=== PATIENT | female | born 1935 | race African-American/Black ===

== ENCOUNTER 2018-12-18 20:15 | Inpatient (IN) ==
[2018-12-18] MEDS ORDERED: M.V.I.-12 10 ML, FOLIC ACID 1 MG, MAGNESIUM SULFATE 1 GM, THIAMINE 100 MG in NS 1,000 ML IV ONE (21:24)
--- NOTE | 2018-12-18 21:51 | Diag Imaging Result Doc PS360 ---
EXAM: CT HEAD W/O CONTRAST INDICATION: lt sided weakness TECHNIQUE: COMPARISON: None. FINDINGS: There is patchy low attenuation in the periventricular and subcortical white matter suggesting moderate microangiopathy. There is ventriculomegaly that is likely due to age-related brain atrophy. There is no definite acute infarct given the limited sensitivity of CT versus MRI. There is no discrete intracranial mass, mass effect, or intracranial hemorrhage. The surrounding soft tissues and bony structures are essentially unremarkable. IMPRESSION: Chronic appearing changes as described. No definite acute intracranial pathology by CT. Electronically signed by Román Crowder 12/18/2018 9:49 PM
[2018-12-18 22:21] LABS: BASO# 0.03 X1000 (0.0-0.2); BASO% 0.4 % (0.0-0.8); EOS# 0.03 X1000 (0.0-0.7); EOS% 0.4 % (0.0-10.0); HEMATOCRIT 32.4 % (37.0-47.0); HEMOGLOBIN 10.7 g/dL (12.0-16.0); LYMPH# 1.12 X1000 (1.2-3.4); LYMPH% 16.1 % (20.5-51.1); MCH 30.5 PG (27-31); MCV 92.3 FL (81-99); MONO# 0.85 X1000 (0.11-0.59); MONO% 12.2 % (1.7-9.3); MPV 8.6 FL (7.4-10.4); NEUT# 4.94 X1000 (1.4-6.5); NEUT% 70.9 % (42.2-75.2); PLT 242 X1000 (130-400); RBC 3.51 XMIL (4.2-5.4); RDW 14.5 % (11.5-14.5); WBC 6.97 X1000 (4.8-10.8)
[2018-12-18 22:28] LABS: INR 1.01; PROTIME 14.1 Seconds (11.0-16.0)
[2018-12-18 22:29] LABS: PTT 33.7 Seconds (22.3-41.8)
[2018-12-18 22:49] LABS: ALB/GLOB RATIO 1.3; ALBUMIN 3.8 g/dL (3.5-5.0); CALCIUM 8.9 mg/dL (8.8-10.2); CREATININE 1.6 mg/dL (0.5-0.9); POTASSIUM 4.1 mmol/L (3.5-5.1); TOTAL BILIRUBIN 0.47 mg/dL (0.20-1.00); TOTAL PROTEIN 6.8 g/dL (6.3-8.3)
--- NOTE | 2018-12-18 22:49 | EKG Report ---
Test Performed on : 12/18/2018 10:30:33 PM Test Reason : WEAKNESS Blood Pressure : / mmHG Vent. Rate : 098 BPM Atrial Rate : 098 BPM P-R Int : 124 ms QRS Dur : 082 ms QT Int : 342 ms P-R-T Axes : 067 048 052 degrees QTc Int : 436 ms Normal sinus rhythm. Possible Left atrial enlargement Nonspecific ST abnormality Abnormal ECG When compared with ECG of 15-JUN-2007 07:12, Vent. rate has increased BY 38 BPM Non-specific change in ST segment in Anterior leads Nonspecific T wave abnormality, worse in Inferior leads Unconfirmed Result
[2018-12-18 23:08] LABS: URINE SOURCE CATH
[2018-12-18 23:21] LABS: BILIRUBIN URINE NEGATIVE (NEGATIVE); BLOOD URINE MODERATE (NEGATIVE); COLOR YELLOW; GLUCOSE URINE NEGATIVE (NEGATIVE); KETONE URINE NEGATIVE (NEGATIVE); LEUKOCYTES URINE NEGATIVE (NEGATIVE); NITRITE URINE NEGATIVE (NEGATIVE); PROTEIN URINE 30 mg/dL (NEGATIVE); TURBIDITY URINE CLEAR (CLEAR); UROBILINOGEN URINE NORMAL (NORMAL)
[2018-12-18 23:22] LABS: UR EPITHELIAL CELLS <10 /HPF (<10); URINE BACTERIA NEGATIVE /HPF; URINE RBC <10 /HPF (<10); URINE WBC <10 /HPF (<10)
[2018-12-18] MEDS ORDERED: ASPIRIN PO ONE (23:54)
--- NOTE | 2018-12-18 23:54 | PROVIDER DOCUMENTATION ---
This chart was entered by Rosa Barroso Scribe, acting as scribe for Gunnar Bernard MD. HPI-General Adult - General Chief Complaint: General Adult Stated Complaint: unable to urinate Time Seen by Provider: 12/18/18 21:11 Source: patient Allergies/Adverse Reactions: Patient Allergies Allergy/AdvReac Type Severity Reaction Status Date / Time No Known Allergies Allergy Verified 12/18/18 21:38 Home Medications: Home Medication List Medication Instructions Recorded Confirmed Last Taken Type Cholecalciferol (Vitamin D3) 2,000 unit PO DAILY 12/18/18 12/18/18 Unknown History [Vitamin D3] Donepezil HCl 10 mg PO QHS 12/18/18 12/18/18 Unknown History LISINOpril [Prinivil] 20 mg PO DAILY 12/18/18 12/18/18 Unknown History Lisinopril/Hydrochlorothiazide 1 ea PO DAILY 12/18/18 12/18/18 Unknown History [Lisinopril-Hctz 20-25 mg Tab] Memantine HCl 5 mg PO BID 12/18/18 12/18/18 Unknown History Mirtazapine 7.5 mg PO QHS 12/18/18 12/18/18 Unknown History Oxcarbazepine 300 mg PO BID 12/18/18 12/18/18 Unknown History Quetiapine Fumarate 300 mg PO TID 12/18/18 12/18/18 Unknown History Trazodone HCl 50 mg PO QHS 12/18/18 12/18/18 Unknown History - History of Present Illness -Gen Adult Nature of Presenting Problems: pt is a 83 yr old female presenting via EMS with complaint of decreased appetite, decreased urine out put and fatigue. per family pt was admitted x 8/9 days at [facility] in [place], pt was discharged home 2 days ago. family with pt reports she has not eaten since returning home, pt reports she does not feel like eating. family also reports decreased urination, was told her kidney function was low and she has appointment with nephrology on 12/23/18 to follow up on this. family noted left arm weakness apporx 1300 this date. pt denies any pain, only admits left arm weakness and no appetite. Pt also is unable to move her lt arm that was noticed by her family at about 1pm today. Location of Pain/Injury: reports: none Pain Radiation: reports: no radiation Quality of Pain: reports: none Onset/Duration: reports: 2 days ago Timing: reports: still present, changing over time Context/Activities at Onset: reports: rest Modifying Factors: improves with: nothing Associated Symptoms: reports: fatigue, fever/chills, genitourinary problems, loss of appetite. denies: chest pain, diarrhea, nausea, shortness of breath, vomiting Similar Symptoms Previously?: No Recently seen or treated by another doctor?: Yes Review of Systems - Adult - REVIEW OF SYSTEMS - ADULT ROS:: ROS per family Constitutional: reports: fatique Eyes: reports: no symptoms reported Ears, Nose, Mouth & Throat: reports: no symptoms reported Cardiovascular: denies: chest pain, palpitations, syncope Respiratory: denies: cough, shortness of breath, wheezing Gastrointestinal: reports: poor appetite. denies: diarrhea, vomiting Genitourinary: reports: other (decreased urine output) Musculoskeletal: reports: no symptoms reported Integumentary: reports: no symptoms reported Neurological: denies: headache/migraines Psychiatric: reports: no symptoms reported Endocrine: reports: no symptoms reported Hematologic/Lymphatic: reports: no symptoms reported Allergic/Immunologic: reports: no symptoms reported All Other Systems: Reviewed and Negative Past History - Adult - PAST MEDICAL HISTORY-ADULT Review of Records: reports: Nursing Assessment Review, Medications Reviewed, Social history reviewed & non-contributory. Major Childhood Illnesses: reports: denies history Cardiovascular: reports: denies history Respiratory: reports: denies history Gastrointestinal: reports: denies history Obstetrical/Gynecological: reports: denies history Genitourinary: reports: denies history Musculoskeletal: reports: denies history Neurological: reports: dementia Endocrine/Immune: reports: denies history Other Conditions: reports: denies history - IMMUNIZATION STATUS Childhood Immunizations: See Nurse Assessment Flu Vaccine: See Nurse Assessment - FAMILY HISTORY Family History: reviewed, not pertinent - SOCIAL HISTORY Living Situation: family Physical Exam-General - PHYSICAL EXAM-ADULT Initial Vital Signs Reviewed: Yes - CONSTITUTIONAL General Appearance: alert, no apparent distress - EYES Eyes: PERRL/EOMI - HEAD, EARS, NOSE, MOUTH & THROAT HENMT: normocephalic/atraumatic, moist mucous membranes - NECK Neck: non-tender, full range of motion, supple, normal inspection - RESPIRATORY Respiratory: chest non-tender, lungs clear, normal breath sounds, no respiratory distress, no accessory muscle use - CARDIOVASCULAR Cardiovascular: normal peripheral pulses, regular rate, rhythm, no edema - GASTROINTESTINAL (ABDOMEN) Abdominal Exam: normal bowel sounds, soft, tenderness (suprapubic tenderness) - LYMPHATIC Lymphatic: no adenopathy - MUSCULOSKELETAL Back Exam: normal inspection, no CVA tenderness, no vertebral tenderness Extremity: non-tender, normal inspection, normal capillary refill, tenderness (lt wrist tenderness). negative: pulse deficit - SKIN Integumentary: normal color, normal turgor, warm/dry - NEUROLOGIC Neurologic: motor weakness (left arm weakness. Pt is unable to move Lt arm. She denies any falls or injuries.) - PSYCHIATRIC Psych/Mental Status: normal mood/affect Progress - PLAN OF CARE/RESULTS Progress/Plan/Lab Results: Vital Signs - 8 hr 12/18/18 20:52 Temperature 99.7 F H Pulse Rate 93 H Respiratory Rate 18 Blood Pressure 197/74 O2 Sat by Pulse Oximetry 95 Result Diagrams: 12/18/18 22:10 12/18/18 22:10 - EKG 1 Time of EKG reading by physician:: 22:30 EKG Read and Signed by:: Gunnar Bernard EKG Interpretation (*Must complete 3 of following elements*): Abnormal (non spe cific st abnormality, poss LAE) Rate: 98 Rhythm: nsr [place]: normal QRS: normal SC Interval: normal ST Wave: non-specific ST changes - CT/MRI 1 CT Study: Head Impression: Normal (Signed EXAM: CT HEAD W/O CONTRAST INDICATION: lt sided weakness TECHNIQUE: COMPARISON: None. FINDINGS: There is patchy low attenuation in the periventricular and subcortical white matter suggesting moderate microangiopathy. There is ventriculomegaly that is likely due to age- related brain atrophy. There is no definite acute infarct given the limited sensitivity of CT versus MRI. There is no discrete intracranial mass, mass effect, or intracranial hemorrhage. The surrounding soft tissues and bony structures are essentially unremarkable. IMPRESSION: Chronic appearing c hanges as described. No definite acute intracranial pathology by CT. Electronically signed by Román Crowder 12/18/2018 9:49 PM 12/18/182148 Interpreting Physician: Román Crowder MD Dictated Date/Time: 12/18/182146 cc: Gunnar Bernard MD; Nicolás Bello MD), See EMR Report Comparison with other Films: no prior study - CONSULTS/PCP/HOSPITALIST Notification #1 *Consult/PCP/Hospitalist*: Dr Dee Time Discussed: 23:50 Consult Disposition: Will see in ED, Admit Departure - Departure Date of Disposition Decision: 12/18/18 Time of Disposition Decision: 23:50 DIAGNOSIS: Dehydration, Renal insufficiency, LUE weakness Disposition: ADMITTED INPATIENT 09 Certified Medical Emergency: Emergent Condition: Fair Referrals and Follow-Ups: Nicolás Bello MD [ACTIVE STAFF PHYSICIAN] - - Critical Care Note This patient required my direct & personal management of CC.: No Attestation - Physician/ ROXANE Attestation Patient care was provided by Advanced Practice Provider:: No The physician spent face to face time with patient:: Yes Advanced Practice Provider documentation review:: Supervising physician onsite and consulted in the evaluation and care of this patient. The physician did have a face to face encounter with the patient. This chart was documented by the indicated scribe, (Rosa Barroso Scribe) and accurately reflects the services I performed and decisions made by me, Gunnar Bernard MD, as attested by the provider's signature.
[2018-12-19] MEDS ORDERED: VOLTAREN 1% GEL TOP ONE (01:27)
[2018-12-19] MEDS: NS 1,000 ML IV SCH ×2 (01:57→18:45)
--- NOTE | 2018-12-19 08:47 | Diag Imaging Result Doc PS360 ---
EXAM: WRIST COMPLETE LEFT INDICATION: wrist pain TECHNIQUE: 3 views COMPARISON: None. FINDINGS: There are small degenerative subcortical cysts involving several carpal bones and there is degenerative narrowing of the radiocarpal joint. There is no discrete fracture, dislocation, or significant intrinsic osseous lesion, otherwise. The visualized joint spaces are essentially unremarkable. There is suggestion of mild soft tissue edema around the wrist. IMPRESSION: Degenerative changes and suggestion of mild soft tissue edema. No definite acute osseous abnormality by plain radiograph. Electronically signed by Román Crowder 12/19/2018 8:45 AM
[2018-12-19] MEDS ORDERED: SEROQUEL PO SCH (09:00)
--- NOTE | 2018-12-19 10:08 | HISTORY AND PHYSICAL ---
PRIMARY CARE PHYSICIAN: Unknown. CHIEF COMPLAINT: Left upper extremity weakness. HISTORY OF PRESENTING ILLNESS: An 83-year-old female with a history of dementia and hypertension who presented to the emergency department with a 1-day history of having left upper extremity weakness. The patient is a poor historian. However, family member stated that she was having difficulty lifting upper left arm. She was evaluated in the emergency department and due to her presenting symptoms and suspected stroke it was thought that she would need admission for further management. At the time of my examination, patient denied any headache, fever, chills, chest pain, shortness of breath, hemoptysis or weight changes, but complained of left wrist pain. PAST MEDICAL HISTORY: Includes dementia, hypertension. PAST SURGICAL HISTORY: None. ALLERGIES: No known drug allergies. CURRENT MEDICATIONS: Include donepezil 10 mg p.o. at bedtime, lisinopril 20 mg p.o. daily, memantine 5 mg p.o. b.i.d., oxcarbazepine 300 mg p.o. b.i.d., quetiapine 300 mg p.o. t.i.d., trazodone 50 mg p.o. at bedtime. SOCIAL HISTORY: No history of smoking, alcohol or illicit drug use. She lives with her nephew. FAMILY HISTORY: No history of coronary artery disease. REVIEW OF SYSTEMS: Fourteen point review of systems as listed in HPI. Other systems negative. PHYSICAL EXAMINATION: GENERAL: Cooperative, friendly female. She is resting comfortably now. VITAL SIGNS: Temperature 99.7 degrees, pulse 93, respiration 18, blood pressure 197/74. HEENT: Atraumatic, normocephalic. Extraocular movements intact. PERRLA. NECK: No masses. CHEST: Clear to auscultation. CARDIOVASCULAR: Regular rate and rhythm. ABDOMEN: Soft, positive bowel sounds. EXTREMITIES: Left wrist tenderness. NEUROLOGIC: She is awake, alert, oriented x2. Strength 1/5 on left upper extremity, 5/5 all other extremities. Speech is intact. GENITOURINARY: No bladder distention. SKIN: Warm. LABORATORIES AND STUDIES: WBC 6.97, hemoglobin 10.7, hematocrit 32.4, platelets 242,000. Sodium 143, potassium 4.1, chloride 102, CO2 is 27, BUN is 34, creatinine is 1.6, glucose 121. UA, negative for leukocytes. Head CT, chronic-appearing changes, no acute intracranial pathology. ASSESSMENT: An 83-year-old female with a history of dementia and hypertension who was brought to the emergency department due to 1-day history of having difficulty raising her left upper extremity. She was seen in the ER and due to suspicion of CVA she will require admission for further management. 1. Left upper extremity weakness. We will need to rule out cerebrovascular accident. 2. Left wrist tenderness. 3. Renal insufficiency. 4. Hypertension. 5. Dementia. PLAN: 1. We will admit patient to medical floor with telemetry. 2. Continue with stroke workup. 3. We will schedule an MRI of the brain. 4. We will consult Neurology. 5. We will check an echocardiogram. 6. We will give appropriate analgesics for pain control. 7. Continue with gentle hydration. 8. We will monitor blood pressure closely. 9. We will restart home medications. 10. We will put patient on DVT prophylaxis with SCDs. 11. Continue to follow, and reassess and make further recommendation based on patient's clinical course. cc: Lit Dee MD
[2018-12-19] MEDS: TRILEPTAL PO SCH ×2 (10:18→21:47)
[2018-12-19] MEDS: NAMENDA PO SCH ×2 (10:21→21:48)
[2018-12-19] MEDS: TYLENOL PO PRN (10:22)
[2018-12-19] MEDS: PRINIVIL PO SCH ×2 (10:22→14:39)
[2018-12-19 15:54] LABS: URINE SOURCE CATH
[2018-12-19 16:06] LABS: BILIRUBIN URINE NEGATIVE (NEGATIVE); BLOOD URINE SMALL (NEGATIVE); COLOR YELLOW; GLUCOSE URINE NEGATIVE (NEGATIVE); KETONE URINE NEGATIVE (NEGATIVE); LEUKOCYTES URINE NEGATIVE (NEGATIVE); NITRITE URINE NEGATIVE (NEGATIVE); PROTEIN URINE TRACE mg/dL (NEGATIVE); SP GRAVITY URINE 1.018; TURBIDITY URINE CLEAR (CLEAR); UROBILINOGEN URINE NORMAL (NORMAL)
[2018-12-19 16:30] LABS: UR EPITHELIAL CELLS <10 /HPF (<10); URINE BACTERIA NEGATIVE /HPF; URINE RBC <10 /HPF (<10); URINE WBC <10 /HPF (<10)
[2018-12-19 16:39] LABS: URINE CASTS GRANULAR PRESENT; URINE CRYSTALS NONE SEEN; URINE YEAST NONE SEEN
[2018-12-19] MEDS: ARICEPT PO SCH (21:47)
[2018-12-20 07:44] LABS: BASO# 0.02 X1000 (0.0-0.2); BASO% 0.2 % (0.0-0.8); EOS# 0.02 X1000 (0.0-0.7); EOS% 0.2 % (0.0-10.0); HEMATOCRIT 30.4 % (37.0-47.0); HEMOGLOBIN 9.8 g/dL (12.0-16.0); IMM GRAN# 0.02 X1000 (0.0-0.04); IMM GRAN% 0.2 % (0.0-0.5); LYMPH% 12.4 % (20.5-51.1); MCH 29.6 PG (27-31); MCHC 32.2 g/dL (33-37); MCV 91.8 FL (81-99); MONO# 0.88 X1000 (0.11-0.59); PLT 249 X1000 (130-400); RBC 3.31 XMIL (4.2-5.4); RDW 14.4 % (11.5-14.5); WBC 8.84 X1000 (4.8-10.8)
[2018-12-20 08:02] LABS: AGAP 16; BUN 21 mg/dL (8-22); CALCIUM 7.9 mg/dL (8.8-10.2); CHLORIDE 103 mmol/L (98-107); COSMO 282; ESTIMATED GFR > 60; GLUCOSE 98 mg/dL (70-104); POTASSIUM 4.2 mmol/L (3.5-5.1); SODIUM 140 mmol/L (136-145); TCO2 21 mmol/L (25-35)
[2018-12-20] MEDS: TRILEPTAL PO SCH ×2 (09:08→21:09)
[2018-12-20] MEDS: PRINIVIL PO SCH (09:08)
[2018-12-20] MEDS: NAMENDA PO SCH (09:09)
--- NOTE | 2018-12-20 09:20 | Diag Imaging Result Doc PS360 ---
MRI BRAIN W/WO CONTRAST - 12/19/2018 INDICATION: CVA COMPARISON: Head CT 12/18/2018 FINDINGS: There is no area of restricted diffusion. No intracranial mass or hemorrhage. There is no abnormal contrast enhancement. There is overall moderate atrophy, with significant diffuse ventriculomegaly. There is some moderate scattered periventricular white matter hyperintensity compatible with chronic microvascular disease. IMPRESSION: No acute process. Atrophy and chronic microvascular disease. 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 Electronically signed by Timothy Esteban 12/20/2018 9:18 AM
[2018-12-20] MEDS ORDERED: NORVASC PO ONE (14:01)
[2018-12-20] MEDS: NS 1,000 ML IV SCH (15:00)
--- NOTE | 2018-12-20 15:13 | PROGRESS NOTE ---
DATE: 12/20/2018 SUBJECTIVE: This patient seems to be doing better today. She is more awake, she is following commands, and she is answering some of my questions for me. She is not oriented to time, though. She is able to move all 4 extremities. It looks like she has a little bit of left upper extremity weakness. MRI did not show any acute process. We will continue with same management. We will continue physical therapy and occupational therapy. OBJECTIVE: Vital Signs: Temperature 98 degrees, pulse 91, respiratory rate 20, blood pressure 186/74, oxygen saturation 98 on room air. HEENT: Head normocephalic, no trauma. PERRLA. Neck: Supple. No JVD. No masses. Central trachea. Chest: Clear to auscultation. No wheezing. No rales. Abdomen: Soft, nontender, nondistended. No hepatosplenomegaly. Extremities: No edema, no clubbing, no cyanosis. Left wrist tenderness. Neurological: She is awake. She is oriented x2. She has some weakness around 3/5 left upper extremity and 5/5 all other extremities. Speech is intact. LABORATORY: WBC 8.8, hemoglobin 9.8, hematocrit 30.4, platelets 249,000. Sodium 140, potassium 4.2, chloride 103, bicarbonate 21, BUN 21, creatinine 1, glucose 98, calcium 7.9. ASSESSMENT AND PLAN: 1. Encephalopathy, resolved. Yesterday this patient basically was really lethargic. I believe was because of the medications. It looks like she has been on quetiapine, and the dose has been increased. I stopped it today and also I held the trazodone and mirtazapine, which I will restart today. I will start with quetiapine, but at a lower dose today, as well. Instead of 100 t.i.d., I will start with 25 t.i.d., and I will discuss with the family about it today or tomorrow. 2. Left wrist tenderness, probably due to a trauma. She is not complaining of too much pain today. X-rays negative. 3. Acute kidney injury. This is getting much better. Actually the creatinine decreased from 1.6 to 1.0. I do not have any previous results to compare. 4. Hypertension. She has been placed back on her lisinopril. We held the hydrochlorothiazide because of her kidney dysfunction. I will add amlodipine to her medications times one at 2.5 mg to see how she does. 5. Dementia. She is alert. She is oriented x2. I will continue with her regular medications, but I will decrease the dose of the quetiapine. cc: Terry Bond MD
--- NOTE | 2018-12-20 15:21 | CONSULTATION ---
DATE OF CONSULTATION: 12/20/2018 LOCATION: Room 327. HISTORY OF PRESENT ILLNESS: Ms. Goode is 83 years old and there is reported to be baseline dementia. She presented with report of left arm weakness. Her history to me is considered not valid based on her baseline dementia. She told me that she thinks her left arm might be weak, but she is not certain and she is not certain when that might have become apparent. She does not remember any head, neck, arm injury. She does not remember prior diagnosis of stroke. I do not have first hand report available now regarding the duration of her dementia. The admission note indicates donepezil 10 mg daily and memantine 5 mg b.i.d., but I do not know how long she has had these on board. Other home medicines with [employer] activity include oxcarbazepine 300 mg b.i.d., mirtazapine 7.5 mg at bedtime, quetiapine 100 mg t.i.d., trazodone 50 mg at bedtime. I have not verified these medication doses to be correct. She could not provide reason for oxcarbazepine. WORKUP: Workup here includes initial noncontrast CT of the head showing atrophy and old changes, but nothing focal or acute. Brain MRI done with and without contrast this morning is reported to show nothing remarkable, nothing acute. Lab shows anemia. Chemistry profile shows initial mild azotemia, which has been corrected. She has been afebrile. Systolic blood pressures were initially 190s, once recorded 102, otherwise 140s-180s in recent hours. EXAMINATION: Ms. Goode is awake, alert, attentive. She answered questions appropriately. She did not identify this as a hospital. She initially told me she was in [place] and later [place]. She did not name the President. She guessed the day of the week incorrectly to be Thursday. She did not provide the name of the month. Speech is not significantly dysarthric. Language function is intact on brief bedside testing. I did not test her cognitive function further. Head and neck are unremarkable. There is no meningismus. She has full visual arevalo. Extraocular movements are good. Facial motility is little bit diminished bilaterally, but appears symmetric. Tongue is midline. She has good power in the right arm. On the left, I can overcome the deltoid at the shoulder, but this is inconsistent. She splints her left arm with apparent discomfort. The left hand appears a little bit swollen across the dorsum and there is warmth there. She did rapid alternating movements better with the right hand than the left. She did well on [id number] testing bilaterally. She reports good pinprick and light touch appreciation over the hands. Proprioception is good in the fingers bilaterally. She has good power in the legs, but inconsistent attention to effort there. Tone is symmetric in the legs. Proprioception is good at the great toe MTP joint bilaterally. Plantar response is silent bilaterally. She has good pinprick appreciation over the feet symmetrically. I did not test her gait. IMPRESSION: Subjective left arm weakness. Negative imaging is reassuring. Findings on my exam are consistent with guarding or splinting more than loss of muscle power in the left arm. Since I do not know her background, I do not have any urgent suggestion. If not previously tried, memantine dose could be increased. Later, donepezil dose might be increased. Also, note she has several [employer] active medications on board, as listed. If the admission list is accurate, there might be some consideration for reducing those. Thanks for asking Neurology to see Ms. Goode. cc: MD LIZZ Taylor III
[2018-12-20] MEDS: APRESOLINE IV PRN (15:48)
[2018-12-20] MEDS: SEROQUEL PO SCH (17:45)
[2018-12-20] MEDS: ARICEPT PO SCH (21:09)
[2018-12-21] MEDS: NAMENDA PO SCH ×3 (00:09→21:51)
[2018-12-21] MEDS: DESYREL PO SCH ×2 (00:09→21:51)
[2018-12-21] MEDS: REMERON PO SCH ×2 (00:10→21:51)
[2018-12-21 08:13] LABS: HEMATOCRIT 31.2 % (37.0-47.0); HEMOGLOBIN 10.3 g/dL (12.0-16.0); LYMPH% 16.8 % (20.5-51.1); MCH 30.2 PG (27-31); MCV 91.5 FL (81-99); MPV 8.8 FL (7.4-10.4); NEUT% 70.6 % (42.2-75.2); PLT 259 X1000 (130-400); RBC 3.41 XMIL (4.2-5.4); RDW 14.4 % (11.5-14.5); WBC 7.42 X1000 (4.8-10.8)
[2018-12-21 08:14] LABS: BASO# 0.03 X1000 (0.0-0.2); BASO% 0.4 % (0.0-0.8); EOS# 0.05 X1000 (0.0-0.7); EOS% 0.7 % (0.0-10.0); IMM GRAN# 0.03 X1000 (0.0-0.04); IMM GRAN% 0.4 % (0.0-0.5); LYMPH# 1.25 X1000 (1.2-3.4); MONO# 0.82 X1000 (0.11-0.59); MONO% 11.1 % (1.7-9.3); NEUT# 5.24 X1000 (1.4-6.5)
[2018-12-21 09:06] LABS: AGAP 13; CHLORIDE 102 mmol/L (98-107); GLUCOSE 90 mg/dL (70-104); POTASSIUM 3.4 mmol/L (3.5-5.1); SODIUM 140 mmol/L (136-145); TCO2 25 mmol/L (25-35)
[2018-12-21 09:07] LABS: ALB/GLOB RATIO 0.9; ALBUMIN 3.3 g/dL (3.5-5.0); ALKALINE PHOSPHATASE 114 U/L (32-104); BUN 17 mg/dL (8-22); CALCIUM 8.9 mg/dL (8.8-10.2); COSMO 280; CREATININE 0.9 mg/dL (0.5-0.9); ESTIMATED GFR > 60; GOT 29 U/L (10-30); GPT 19 U/L (10-36); TOTAL BILIRUBIN 0.42 mg/dL (0.20-1.00); TOTAL PROTEIN 6.8 g/dL (6.3-8.3)
[2018-12-21] MEDS: TRILEPTAL PO SCH ×2 (09:49→21:50)
[2018-12-21] MEDS: APRESOLINE PO SCH ×3 (09:49→21:51)
[2018-12-21] MEDS: PRINIVIL PO SCH (09:49)
[2018-12-21] MEDS: SEROQUEL PO SCH ×3 (09:49→21:51)
[2018-12-21] MEDS ORDERED: KLOR-CON PO ONE (10:01)
[2018-12-21] MEDS: MEGACE PO SCH ×2 (12:13→21:50)
--- NOTE | 2018-12-21 12:39 | PROGRESS NOTE ---
DATE: 12/21/2018 Ms. Goode is awake, alert, attentive, cheerful. There is still some tenderness to palpation over the left hand. I do not find anything new on limited bedside neurologic exam this morning. I do not have any new suggestions, nothing to add to comments in initial consult note yesterday. Thanks for asking neurology to see Ms. Goode. cc: Andree Anna III, MD
--- NOTE | 2018-12-21 15:44 | PROGRESS NOTE ---
DATE: 12/21/2018 SUBJECTIVE: The patient seems to be doing better. She is awake. She is able to recognize family members at the bedside. She is not oriented to time but otherwise she is oriented, she is able to move all 4 extremities. She does have generalized weakness and the plan is to send this patient to a rehab center. OBJECTIVE: Vital Signs: Temperature 97.8 degrees, pulse 93, respiratory rate 18, blood pressure 147/52, oxygen saturation 100% on room air. HEENT: Head normocephalic. No trauma. PERRLA. Neck: Supple. No JVD. No masses. Central trachea. Chest: Clear to auscultation. No wheezing. No rales. Abdomen: Soft, nontender, nondistended. No hepatosplenomegaly. Extremities: No edema, no clubbing, no cyanosis. Left wrist tenderness. Neurologic: She is awake, she is oriented. She has mild weakness at the level of the left upper extremity. Speech is intact. LABORATORY: WBC 7.4, hemoglobin 9.3, hematocrit 31.2, platelets 259,000. Sodium 140, potassium 3.4, chloride 102, bicarbonate 25, BUN 17, creatinine 0.9, glucose 90, calcium 8.9, albumin 3.3. ASSESSMENT AND PLAN: 1. Encephalopathy, resolved. Two days ago this patient was really lethargic. I decreased her quetiapine to 25 mg t.i.d. and I discussed the case with the nephew which is at the bedside. She seems to be doing better. We will continue with same management. 2. Left wrist tenderness likely due to trauma. She is not complaining of too much pain today. X- rays negative. 3. Acute kidney injury resolved. 4. Hypertension stable. 5. Dementia. She is alert. She is oriented x2. She seems to be doing okay. 6. Decreased appetite, I added Megace yesterday to her medications, also I added some multivitamins. 7. Hypokalemia. I will replace it. cc: Terry Bond MD
[2018-12-21] MEDS: CENTRUM SILVER PO SCH (16:20)
--- NOTE | 2018-12-21 17:58 | Diag Imaging Result Doc PS360 ---
EXAM: CHEST-2 VIEWS INDICATION: for placement TECHNIQUE: 3 views COMPARISON: None. FINDINGS: The lungs are grossly clear. There is no discrete pleural fluid collection or pneumothorax. The cardiomediastinal silhouette and central vasculature are grossly unremarkable. IMPRESSION: No evidence of acute pathology by plain radiograph. Electronically signed by Román Crowder 12/21/2018 5:55 PM
[2018-12-21] MEDS: NS 1,000 ML IV SCH (18:16)
[2018-12-21] MEDS: ARICEPT PO SCH (21:50)
[2018-12-22] MEDS: APRESOLINE PO SCH ×3 (09:26→21:29)
[2018-12-22] MEDS: NAMENDA PO SCH ×2 (09:26→21:29)
[2018-12-22] MEDS: MEGACE PO SCH ×2 (09:26→21:29)
[2018-12-22] MEDS: TRILEPTAL PO SCH ×2 (09:27→21:29)
[2018-12-22] MEDS: PRINIVIL PO SCH (09:27)
[2018-12-22] MEDS: SEROQUEL PO SCH ×3 (09:27→17:13)
[2018-12-22] MEDS: CENTRUM SILVER PO SCH (09:27)
--- NOTE | 2018-12-22 13:35 | PROGRESS NOTE ---
DATE: 12/22/2018 SUBJECTIVE: The patient seems to be doing better. She is awake. She is able to follow commands. She is oriented to time, but she is oriented to place and person. She moves all 4 extremities. She has generalized weakness and the plan is to send this patient to a rehab center. OBJECTIVE: Vital Signs: Temperature 98 degrees, pulse 81, respiratory rate 18, blood pressure 128/47, and oxygen saturation 97% on room air. HEENT: Head normocephalic. No trauma. PERRLA. Neck: Supple. No JVD. No masses. Central trachea. Chest: Clear to auscultation. No wheezing. No rales. Abdomen: Soft, nontender, and nondistended. No hepatosplenomegaly. Extremities: No edema. No clubbing. No cyanosis. Left wrist tenderness. Neurological: Awake. She is alert. She has mild weakness at the level of the left upper extremity. Speech is intact. She follows commands. LABORATORY: No lab work done today. ASSESSMENT AND PLAN: 1. Encephalopathy, resolved. A few days ago, this patient was really lethargic probably due to medications. I would decrease her quetiapine to 25 mg t.i.d. I discussed the case with the nephew yesterday. She seems to be doing better. I will continue with same management, pending rehab center placement. 2. Left wrist tenderness, likely due to trauma. She is not complaining of too much of pain. X- rays negative. 3. Acute kidney injury resolved. 4. Hypertension stable. 5. Dementia. She is alert. She is oriented x2. She seems to be getting better. 6. Decreased appetite. Continue with Megace and multivitamin. 7. Hypokalemia has been replaced yesterday. I will ask for a new BMP tomorrow. cc: Terry Bond MD
[2018-12-22] MEDS: NS 1,000 ML IV SCH (14:49)
[2018-12-22] MEDS: REMERON PO SCH (21:29)
[2018-12-22] MEDS: DESYREL PO SCH (21:29)
[2018-12-22] MEDS: ARICEPT PO SCH (21:29)
[2018-12-23] MEDS: APRESOLINE IV PRN (00:41)
[2018-12-23 07:42] LABS: CHLORIDE 104 mmol/L (98-107); POTASSIUM 3.7 mmol/L (3.5-5.1); SODIUM 138 mmol/L (136-145); TCO2 21 mmol/L (25-35)
[2018-12-23 07:43] LABS: AGAP 13; BUN 15 mg/dL (8-22); CALCIUM 8.8 mg/dL (8.8-10.2); COSMO 276; CREATININE 0.8 mg/dL (0.5-0.9); ESTIMATED GFR > 60; GLUCOSE 94 mg/dL (70-104)
[2018-12-23] MEDS: NAMENDA PO SCH ×2 (10:00→22:24)
[2018-12-23] MEDS: SEROQUEL PO SCH ×3 (10:01→17:23)
[2018-12-23] MEDS: APRESOLINE PO SCH ×3 (10:01→22:24)
[2018-12-23] MEDS: MEGACE PO SCH ×2 (10:01→22:25)
[2018-12-23] MEDS: PRINIVIL PO SCH (10:01)
[2018-12-23] MEDS: CENTRUM SILVER PO SCH (10:01)
[2018-12-23] MEDS: TRILEPTAL PO SCH ×2 (10:01→22:24)
[2018-12-23] MEDS: NORVASC PO SCH ×2 (12:59→22:24)
--- NOTE | 2018-12-23 14:22 | PROGRESS NOTE ---
DATE: 12/23/2018 SUBJECTIVE: The patient is doing better. She is awake. She is following commands. She is not oriented to time but she is oriented to place and person. She moves all 4 extremities. She has generalized weakness, and the plan is to send this patient to rehab center. OBJECTIVE: Vital Signs: Temperature 98.9, pulse 91, respiratory rate 18, blood pressure 138/49, oxygen saturation 99 on room air. HEENT: Head normocephalic. No trauma. PERRLA. Neck: Supple. No JVD. No masses. Central trachea. Chest: Clear to auscultation. No wheezing or rales. Abdomen: Soft, nontender, nondistended. No hepatosplenomegaly. Extremities: No edema, no clubbing, no cyanosis. Left wrist is less tender. Neurological: Awake and she is eating by herself. She is oriented to person. She knows she is in the hospital. She is not oriented to time. Her speech is intact. LABORATORY: Sodium 138, potassium 3.7, chloride 104, bicarbonate 21, BUN 15, creatinine is 0.8, glucose 94, calcium 8.8. ASSESSMENT AND PLAN: 1. Encephalopathy, resolved, likely secondary to medications. I will continue with same management for now. She was lethargic at the beginning. 2. Left wrist tenderness, likely due to trauma. She is not complaining to much of pain. X-ray is negative. 3. Acute kidney injury, resolved. 4. Hypertension. I will add amlodipine to her medications. Blood pressure is better controlled at this moment. 5. Dementia. She is alert, she is oriented x2. This seems to be her baseline. 6. Decreased appetite. Continue with Megace and multivitamin. 7. Hypokalemia, this has be replaced, is normal today. cc: Terry Bond MD
[2018-12-23] MEDS: NS 1,000 ML IV SCH (17:00)
[2018-12-23] MEDS: ARICEPT PO SCH (22:24)
[2018-12-23] MEDS: REMERON PO SCH (22:24)
[2018-12-23] MEDS: DESYREL PO SCH (22:24)
[2018-12-24] MEDS: NORVASC PO SCH ×2 (09:10→21:11)
[2018-12-24] MEDS: NAMENDA PO SCH ×2 (09:11→21:01)
[2018-12-24] MEDS: PRINIVIL PO SCH (09:11)
[2018-12-24] MEDS: MEGACE PO SCH ×2 (09:11→21:02)
[2018-12-24] MEDS: CENTRUM SILVER PO SCH (09:11)
[2018-12-24] MEDS: APRESOLINE PO SCH ×3 (09:11→21:02)
[2018-12-24] MEDS: SEROQUEL PO SCH ×3 (09:11→17:12)
[2018-12-24] MEDS: TRILEPTAL PO SCH ×2 (09:11→21:02)
--- NOTE | 2018-12-24 12:10 | PROGRESS NOTE ---
DATE: 12/24/2018 SUBJECTIVE: Patient is lying comfortably in bed. No big changes compared with yesterday. Pending placement. OBJECTIVE: Vital Signs: Temperature 97.5 degrees, pulse 78, respiratory rate 18, and blood pressure 134/65. Oxygen saturation 100% on room air. HEENT: Head normocephalic. No trauma. PERRLA. Neck: Supple. No JVD. No masses. Central trachea. Chest: Clear to auscultation. No wheezing. No rales. Abdomen: Soft, nontender, and nondistended. No hepatosplenomegaly. Extremities: No edema. No clubbing. No cyanosis. Neurological: This patient is awake. She is alert. She is eating by herself. She is oriented to person. She knows she is in the hospital. She is not oriented to time. She is really weak. Her speech is intact. LABORATORY: No lab work done today. ASSESSMENT AND PLAN: 1. Encephalopathy, resolved likely secondary to medications. Continue with same management for now. She was lethargic at the beginning of this hospitalization. 2. Left wrist tenderness, likely due to trauma. No signs of fractures. 3. Acute kidney injury resolved. 4. Hypertension, better controlled. 5. Dementia. She is alert. She is oriented x2. This seems to be her baseline. 6. Decreased appetite. Continue with Megace and multivitamin. 7. Overall, this patient is much better pending rehab center placement. cc: Terry Bond MD
[2018-12-24] MEDS: NS 1,000 ML IV SCH (17:16)
--- NOTE | 2018-12-24 19:59 | Carotid Study ---
DATE: 12/19/2018 PROCEDURE: Carotid duplex imaging. REFERRING PHYSICIAN: Lit Dee MD. INTERPRETING PHYSICIAN: Lincoln Moya MD. TECH: [place]. INDICATIONS: Stroke. FINDINGS: There is minimal atherosclerotic disease seen in the common internal carotid arteries bilaterally. There is no turbulent flow or elevated velocity. There is antegrade vertebral flow bilaterally. Percent stenosis is 0% to 39% bilaterally. INTERPRETATION: Mild atherosclerosis in the bilateral carotid systems which is not hemodynamically significant. OBSERVED DATA RIGHT LEFT Brachial Blood Pressure Carotid Pulse Bruits: Carotid/Sub DIAGRAM OF ULTRASOUND IMAGING R L RIGHT INT EXT INT EXT LEFT Blaine (cm/s) Blaine (cm/s) Subclavian Subclavian CCA Proximal CCA Proximal CCA Distal CCA Distal Bulb Bulb ICA Proximal ICA Proximal ICA Mid ICA Mid ICA Distal ICA Distal ECA ECA Vertebral Vertebral ICA/CCA Ratio ICA/CCA Ratio % Stenosis % Stenosis PHYSICIAN INTERPRETATION: No significant plaque disease identified. There is antegrade vertebral flow bilaterally. cc: MD Lit Basilio MD
[2018-12-24] MEDS: ARICEPT PO SCH (21:01)
[2018-12-24] MEDS: DESYREL PO SCH (21:02)
[2018-12-24] MEDS: REMERON PO SCH (21:03)
[2018-12-25 08:26] LABS: BASO# 0.01 X1000 (0.0-0.2); BASO% 0.1 % (0.0-0.8); EOS# 0.11 X1000 (0.0-0.7); EOS% 1.6 % (0.0-10.0); HEMATOCRIT 26.7 % (37.0-47.0); HEMOGLOBIN 8.6 g/dL (12.0-16.0); IMM GRAN# 0.05 X1000 (0.0-0.04); IMM GRAN% 0.7 % (0.0-0.5); LYMPH# 1.61 X1000 (1.2-3.4); MCH 29.6 PG (27-31); MCHC 32.2 g/dL (33-37); MCV 91.8 FL (81-99); MONO# 0.66 X1000 (0.11-0.59); MONO% 9.9 % (1.7-9.3); NEUT# 4.26 X1000 (1.4-6.5); NEUT% 63.7 % (42.2-75.2); PLT 289 X1000 (130-400); RBC 2.91 XMIL (4.2-5.4); RDW 14.4 % (11.5-14.5)
[2018-12-25 08:28] LABS: AGAP 10; BUN 19 mg/dL (8-22); CALCIUM 8.9 mg/dL (8.8-10.2); CHLORIDE 105 mmol/L (98-107); COSMO 282; CREATININE 0.9 mg/dL (0.5-0.9); ESTIMATED GFR > 60; GLUCOSE 100 mg/dL (70-104); POTASSIUM 3.8 mmol/L (3.5-5.1); SODIUM 140 mmol/L (136-145); TCO2 25 mmol/L (25-35)
[2018-12-25] MEDS: MEGACE PO SCH ×2 (09:08→23:40)
[2018-12-25] MEDS: PRINIVIL PO SCH (09:08)
[2018-12-25] MEDS: SEROQUEL PO SCH ×3 (09:08→17:14)
[2018-12-25] MEDS: CENTRUM SILVER PO SCH (09:08)
[2018-12-25] MEDS: NORVASC PO SCH ×2 (09:08→23:36)
[2018-12-25] MEDS: APRESOLINE PO SCH ×3 (09:09→23:40)
[2018-12-25] MEDS: NAMENDA PO SCH ×2 (09:09→23:37)
[2018-12-25] MEDS: TRILEPTAL PO SCH ×2 (09:09→23:35)
[2018-12-25] MEDS: NS 1,000 ML IV SCH (17:15)
--- NOTE | 2018-12-25 19:39 | Diag Imaging Result Doc PS360 ---
ABDOMEN FLAT/UPRIGHT - 12/25/2018 INDICATION: constipation COMPARISON: None FINDINGS: There is mild constipation. No bowel obstruction or free air. 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 There are probably mild compression fractures at T12, L1 and L2. IMPRESSION: Constipation. Electronically signed by Timothy Esteban 12/25/2018 7:37 PM
[2018-12-25] MEDS: LACTULOSE PO SCH (23:35)
[2018-12-25] MEDS: MIRALAX PO SCH (23:36)
[2018-12-25] MEDS: COLACE PO SCH (23:36)
[2018-12-25] MEDS: REMERON PO SCH (23:37)
[2018-12-25] MEDS: DESYREL PO SCH (23:37)
[2018-12-25] MEDS: ARICEPT PO SCH (23:38)
--- NOTE | 2018-12-26 05:05 | PROGRESS NOTE ---
DATE: 12/25/2018 SUBJECTIVE: The patient is resting comfortably in bed. No acute events noted overnight. OBJECTIVE: Vital Signs: Temperature 97.6 degrees, blood pressure 123/45, heart rate 83, respirations 16, O2 saturation 95% on room air. General: This is a chronically ill-appearing, elderly female lying in bed, in no acute distress. Heart: S1, S2 normal. Regular rate and rhythm. Lungs: Clear to auscultation bilaterally. Abdomen: Positive bowel sounds. Soft, nontender, nondistended. Extremities: No edema, no cyanosis. Neurologic: The patient is alert and oriented. LABS: Hemoglobin 8.6, hematocrit 26. Sodium 140, potassium 3.8, chloride 105, CO2 of 25, BUN 19, creatinine 0.9. ASSESSMENT AND PLAN: 1. Metabolic encephalopathy. Resolved. 2. Acute kidney injury. Resolved. 3. Hypertension. Stable. Continue on the current antihypertensive regimen. 4. Dementia. Continue on Namenda. 5. Disposition. The patient will be discharged to inpatient rehab once a bed is available. cc: Marychuy Rodriguez MD
[2018-12-26] MEDS: MEGACE PO SCH ×2 (10:02→20:49)
[2018-12-26] MEDS: NORVASC PO SCH ×2 (10:02→20:49)
[2018-12-26] MEDS: NAMENDA PO SCH ×2 (10:02→20:49)
[2018-12-26] MEDS: APRESOLINE PO SCH ×4 (10:02→20:49)
[2018-12-26] MEDS: MIRALAX PO SCH ×2 (10:03→20:49)
[2018-12-26] MEDS: SEROQUEL PO SCH ×4 (10:03→17:00)
[2018-12-26] MEDS: PRINIVIL PO SCH (10:03)
[2018-12-26] MEDS: CENTRUM SILVER PO SCH (10:03)
[2018-12-26] MEDS: COLACE PO SCH ×2 (10:03→20:49)
[2018-12-26] MEDS: LACTULOSE PO SCH ×2 (10:03→20:49)
[2018-12-26] MEDS: TRILEPTAL PO SCH ×2 (12:59→20:49)
[2018-12-26] MEDS: FLEET MINERAL OIL ENEMA PR ONE ×2 (12:59→13:06)
--- NOTE | 2018-12-26 17:46 | PROGRESS NOTE ---
DATE: 12/26/2018 SUBJECTIVE: The patient is resting comfortably in bed. She has not had a bowel movement yet. OBJECTIVE: Vital Signs: Temperature 97.9 degrees, blood pressure 173/75, heart rate 97, respiratory rate 16, O2 saturation 94% on home room air. General: This is a chronically ill- appearing elderly female lying in bed in no acute distress. Heart: S1, S2. Normal. Regular rate and rhythm. Lungs: Equal air entry bilaterally. No wheezing, no rales, no rhonchi. Abdomen: Positive bowel sounds. Soft, nontender, nondistended. Extremities: No edema, no cyanosis. Neuro: The patient is alert and oriented. LABS: White blood cell count 6.7, hemoglobin 8.6, hematocrit 26, platelets 289,000. Sodium 140, potassium 3.8, chloride 105, CO2 24, BUN 19, creatinine 0.9. ASSESSMENT AND PLAN: 1. Metabolic encephalopathy. Resolved. 2. Hypertension. Stable. 3. Acute kidney injury. Resolved. 4. Dementia. Continue on Namenda. 5. Anemia. Will check iron studies. 6. Disposition. Will plan to discharge the patient to rehab once a bed is available and the patient's insurance approves the transfer. cc: Marychuy Rodriguez MD
[2018-12-26] MEDS: REMERON PO SCH (20:49)
[2018-12-26] MEDS: ARICEPT PO SCH (20:49)
[2018-12-26] MEDS: DESYREL PO SCH (20:49)
[2018-12-27 07:19] LABS: HEMOGLOBIN 9.4 g/dL (12.0-16.0); MCH 29.8 PG (27-31); MCHC 32.4 g/dL (33-37); MCV 92.1 FL (81-99); MPV 8.5 FL (7.4-10.4); RBC 3.15 XMIL (4.2-5.4); RDW 14.5 % (11.5-14.5); WBC 6.68 X1000 (4.8-10.8)
[2018-12-27 07:45] LABS: AGAP 13; BUN 15 mg/dL (8-22); CALCIUM 8.7 mg/dL (8.8-10.2); CHLORIDE 102 mmol/L (98-107); COSMO 278; CREATININE 0.8 mg/dL (0.5-0.9); ESTIMATED GFR > 60; GLUCOSE 94 mg/dL (70-104); POTASSIUM 3.9 mmol/L (3.5-5.1); SODIUM 139 mmol/L (136-145); TCO2 24 mmol/L (25-35)
[2018-12-27 07:46] LABS: IRON SATURATION 17 %; TIBC 161 ug/dL; TOTAL IRON 27 ug/dL (49-151); UNBOUND IRON 134 ug/dL (112-346)
[2018-12-27 08:27] LABS: FERRITIN 273 ng/mL (13-150)
[2018-12-27] MEDS: MIRALAX PO SCH ×2 (08:46→20:10)
[2018-12-27] MEDS: TRILEPTAL PO SCH ×2 (08:46→20:10)
[2018-12-27] MEDS: COLACE PO SCH ×2 (08:46→20:10)
[2018-12-27] MEDS: APRESOLINE PO SCH ×3 (08:47→20:10)
[2018-12-27] MEDS: CENTRUM SILVER PO SCH (08:47)
[2018-12-27] MEDS: SEROQUEL PO SCH (08:47)
[2018-12-27] MEDS: NAMENDA PO SCH ×2 (08:47→20:10)
[2018-12-27] MEDS: LACTULOSE PO SCH ×2 (08:47→20:10)
[2018-12-27] MEDS: PRINIVIL PO SCH (08:47)
[2018-12-27] MEDS: MEGACE PO SCH ×2 (08:47→20:10)
[2018-12-27] MEDS: NORVASC PO SCH ×2 (08:47→20:10)
--- NOTE | 2018-12-27 19:25 | PROGRESS NOTE ---
DATE: 12/27/2018 SUBJECTIVE: The patient is resting comfortably in bed. She has no complaints at this time. OBJECTIVE: Vital Signs: Temperature 97.5 degrees, blood pressure 104/48, heart rate 84, respirations 16, O2 saturation is 98% on room air. General: This is a chronically ill-appearing elderly female, lying in bed in no acute distress. Heart: S1, S2 normal. Regular rate and rhythm. Lungs: Clear to auscultation bilaterally. Abdomen: Positive bowel sounds. Soft, nontender, nondistended. Extremities: No edema, no cyanosis. Neurologic: The patient is alert and oriented. LABORATORY DATA: Reviewed. ASSESSMENT AND PLAN: 1. Metabolic encephalopathy. Resolved. 2. Dementia. Continue on Namenda. 3. Hypertension. Controlled. 4. Acute kidney injury. Resolved. 5. Anemia. The patient appears to be iron deficient. We will start the patient on Icar C. 6. Constipation. Continue on the scheduled laxative regimen. DISPOSITION: The patient will be discharged to inpatient rehabilitation once her insurance approves the transfer. cc: Marychuy Rodriguez MD
[2018-12-27] MEDS: ARICEPT PO SCH (20:10)
[2018-12-27] MEDS: DESYREL PO SCH (20:10)
[2018-12-27] MEDS: REMERON PO SCH (20:10)
[2018-12-27] MEDS: ICAR-C PO SCH (20:12)
[2018-12-28] MEDS: TRILEPTAL PO SCH ×2 (10:32→20:49)
[2018-12-28] MEDS: MEGACE PO SCH ×2 (10:32→20:48)
[2018-12-28] MEDS: COLACE PO SCH ×2 (10:32→20:48)
[2018-12-28] MEDS: PRINIVIL PO SCH (10:33)
[2018-12-28] MEDS: NAMENDA PO SCH ×2 (10:33→20:49)
[2018-12-28] MEDS: APRESOLINE PO SCH ×3 (10:33→20:49)
[2018-12-28] MEDS: CENTRUM SILVER PO SCH (10:33)
[2018-12-28] MEDS: NORVASC PO SCH ×2 (10:33→20:49)
[2018-12-28] MEDS: ICAR-C PO SCH ×2 (10:33→20:49)
[2018-12-28] MEDS: LACTULOSE PO SCH ×2 (10:48→20:49)
[2018-12-28] MEDS: MIRALAX PO SCH ×2 (10:49→20:48)
--- NOTE | 2018-12-28 13:42 | PROGRESS NOTE ---
DATE: 12/28/2018 SUBJECTIVE: The patient is resting comfortably. She states that she did not eat her breakfast. OBJECTIVE: Vital Signs: Temperature 98.5 degrees, blood pressure 136/62, heart rate 77, respirations 19, O2 saturation is 100% on room air. General: This is a chronically ill-appearing elderly female, lying in bed in no acute distress. Heart: S1, S2 normal. Regular rate and rhythm. Lungs: Clear to auscultation bilaterally. Abdomen: Positive bowel sounds. Soft, nontender, nondistended. Extremities: No edema, no cyanosis. Neurologic: The patient is alert and oriented. LABORATORY DATA: None. ASSESSMENT: 1. Metabolic encephalopathy. 2. Dementia. 3. Hypertension. 4. Acute kidney injury. 5. Anemia. 6. Constipation. PLAN: The patient is medically stable for discharge to inpatient rehabilitation once her insurance approves the transfer. Continue with physical therapy. cc: Marychuy Rodriguez MD
[2018-12-28] MEDS: DESYREL PO SCH (20:49)
[2018-12-28] MEDS: ARICEPT PO SCH (20:49)
[2018-12-28] MEDS: REMERON PO SCH (20:49)
[2018-12-29] MEDS: CENTRUM SILVER PO SCH (10:51)
[2018-12-29] MEDS: TRILEPTAL PO SCH ×2 (10:51→20:59)
[2018-12-29] MEDS: ICAR-C PO SCH ×2 (10:51→21:00)
[2018-12-29] MEDS: NAMENDA PO SCH ×2 (10:51→21:00)
[2018-12-29] MEDS: MEGACE PO SCH (10:51)
[2018-12-29] MEDS: PRINIVIL PO SCH (10:52)
[2018-12-29] MEDS: APRESOLINE PO SCH ×3 (10:52→21:00)
[2018-12-29] MEDS: MIRALAX PO SCH ×2 (10:52→20:59)
[2018-12-29] MEDS: LACTULOSE PO SCH ×2 (10:52→20:59)
[2018-12-29] MEDS: NORVASC PO SCH ×2 (10:52→20:59)
[2018-12-29] MEDS: COLACE PO SCH ×2 (10:52→21:00)
--- NOTE | 2018-12-29 11:58 | Diag Imaging Result Doc PS360 ---
EXAM: KNEE 3 VIEWS RIGHT 12/29/2018 HISTORY: pain and swelling TECHNIQUE: Right knee three views COMMENT: There is severe degenerative change in the lateral compartment with sclerosis and subchondral cyst formation in the lateral tibial plateau. No evidence of acute fracture or dislocation is present. There is a small effusion in the suprapatellar bursa. IMPRESSION: Osteoarthritis with effusion. Electronically signed by Kristofer Vo 12/29/2018 11:56 AM
[2018-12-29] MEDS ORDERED: LOVENOX SUBQ SCH (17:00)
--- NOTE | 2018-12-29 17:08 | PROGRESS NOTE ---
DATE: 12/29/2018 SUBJECTIVE: The patient complains of pain in her right knee. She states she cannot put any weight on it. OBJECTIVE: T-max 101.2 degrees, blood pressure 145/45, heart rate 98, respirations 18, O2 saturation is 99% on room air.General: This is a chronically ill-appearing elderly female, lying in bed. No acute distress. Heart: S1, S2. Normal. Lungs: Clear to auscultation bilaterally. No wheezing. No rales. No rhonchi. Abdomen: Positive bowel sounds. Soft, nontender, nondistended. Extremities: 1+ edema bilaterally. The patient does have tenderness on palpation of the right knee, and the knee appears to be slightly swollen. Neurologic: The patient is alert and oriented. DIAGNOSTIC STUDIES: White blood cell count 6.6, hemoglobin 9.4, hematocrit 29, platelets 366,000. Sodium 139, potassium 3.9, chloride 102 CO2 of 24, BUN 15, creatinine 0.8, glucose 94. Right knee x-ray reveals osteoarthritis with an effusion. ASSESSMENT AND PLAN: 1. Bilateral lower extremity DVTs. Will start full dose lovenox. 2. Fever. We will order blood cultures, a urinalysis with urine culture, and a chest x-ray. We will hold off on antibiotic therapy pending the results of the above mentioned studies. 3. Right knee effusion. The patient states that she cannot put any weight on her right leg. We will consult Orthopedic Surgery. 4. Metabolic encephalopathy. Improved. 5. Dementia. Aware. 6. Anemia. Stable. 7. Hypertension. Stable. 8. Continue with physical therapy and occupational therapy. cc: Marychuy Rodriguez MD [facility]ITAL[facility]ie
[2018-12-29] MEDS: LOVENOX SUBQ SCH (17:55)
--- NOTE | 2018-12-29 18:02 | Diag Imaging Result Doc PS360 ---
CHEST-PORTABLE - 12/29/2018 INDICATION: dyspnea COMPARISON: 12/21/2018 FINDINGS: There is a stable right paratracheal stripe soft tissue density which may represent anything from adenopathy, to benign vessels or thyroid goiter. Lung volumes are severely low with some crowding in the bases. No infiltrates. IMPRESSION: Severely low lung volumes. Indeterminate right paratracheal density. Electronically signed by Timothy Esteban 12/29/2018 6:00 PM
--- NOTE | 2018-12-29 18:03 | Diag Imaging Result Doc PS360 ---
ABDOMEN FLAT/UPRIGHT - 12/29/2018 INDICATION: constipation COMPARISON: 12/25/2018 FINDINGS: There is a nonobstructive bowel gas pattern. No free air or abdominal calcifications. IMPRESSION: No acute disease. Electronically signed by Timothy Esteban 12/29/2018 6:01 PM
[2018-12-29] MEDS: VENOFER 200 MG in NS 150 ML IV SCH (18:43)
[2018-12-29 20:12] LABS: URINE SOURCE CLEAN CATCH
[2018-12-29 20:17] LABS: BILIRUBIN URINE NEGATIVE (NEGATIVE); BLOOD URINE LARGE (NEGATIVE); COLOR ORANGE; GLUCOSE URINE NEGATIVE (NEGATIVE); KETONE URINE NEGATIVE (NEGATIVE); LEUKOCYTES URINE LARGE (NEGATIVE); NITRITE URINE NEGATIVE (NEGATIVE); PH URINE 5.5; PROTEIN URINE 200 mg/dL (NEGATIVE); SP GRAVITY URINE 1.022; TURBIDITY URINE TURBID (CLEAR); UROBILINOGEN URINE NORMAL (NORMAL)
[2018-12-29 20:19] LABS: UR EPITHELIAL CELLS >10 /HPF (<10); URINE BACTERIA 2+ /HPF; URINE RBC TNTC /HPF (<10); URINE WBC TNTC /HPF (<10)
[2018-12-29 20:24] LABS: URINE CASTS NONE SEEN; URINE SMALL ROUND CELLS NONE SEEN; URINE YEAST NONE SEEN
[2018-12-29] MEDS: ROCEPHIN 1 GM in NS 50 ML IV SCH (20:58)
[2018-12-29] MEDS: ARICEPT PO SCH (20:59)
[2018-12-29] MEDS: DESYREL PO SCH (20:59)
[2018-12-29] MEDS: REMERON PO SCH (20:59)
[2018-12-29] MEDS: SENOKOT PO SCH (21:00)
[2018-12-29] MEDS: MEGACE LIQUID PO SCH (21:00)
[2018-12-30] MEDS: LOVENOX SUBQ SCH ×2 (05:26→17:56)
[2018-12-30 06:59] LABS: HEMATOCRIT 29.4 % (37.0-47.0); HEMOGLOBIN 9.6 g/dL (12.0-16.0); MCH 29.9 PG (27-31); MCV 91.6 FL (81-99); RBC 3.21 XMIL (4.2-5.4); WBC 8.53 X1000 (4.8-10.8)
[2018-12-30 07:00] LABS: BASO# 0.02 X1000 (0.0-0.2); BASO% 0.2 % (0.0-0.8); EOS% 1.2 % (0.0-10.0); IMM GRAN# 0.08 X1000 (0.0-0.04); IMM GRAN% 0.9 % (0.0-0.5); LYMPH# 1.59 X1000 (1.2-3.4); LYMPH% 18.6 % (20.5-51.1); MCHC 32.7 g/dL (33-37); MONO# 1.08 X1000 (0.11-0.59); MONO% 12.7 % (1.7-9.3); MPV 8.5 FL (7.4-10.4); NEUT# 5.66 X1000 (1.4-6.5); NEUT% 66.4 % (42.2-75.2); PLT 547 X1000 (130-400); RDW 14.4 % (11.5-14.5)
[2018-12-30 07:29] LABS: AGAP 11; BUN 18 mg/dL (8-22); CALCIUM 8.9 mg/dL (8.8-10.2); CHLORIDE 103 mmol/L (98-107); COSMO 278; CREATININE 0.9 mg/dL (0.5-0.9); ESTIMATED GFR > 60; GLUCOSE 106 mg/dL (70-104); POTASSIUM 4.1 mmol/L (3.5-5.1); SODIUM 138 mmol/L (136-145); TCO2 24 mmol/L (25-35)
[2018-12-30] MEDS: MIRALAX PO SCH ×2 (08:16→14:32)
[2018-12-30] MEDS: NAMENDA PO SCH (08:16)
[2018-12-30] MEDS: SENOKOT PO SCH (08:16)
[2018-12-30] MEDS: ICAR-C PO SCH (08:16)
[2018-12-30] MEDS: PRINIVIL PO SCH (08:17)
[2018-12-30] MEDS: APRESOLINE PO SCH ×2 (08:17→14:32)
[2018-12-30] MEDS: TRILEPTAL PO SCH (08:17)
[2018-12-30] MEDS: CENTRUM SILVER PO SCH (08:17)
[2018-12-30] MEDS: NORVASC PO SCH (08:17)
[2018-12-30] MEDS: MEGACE LIQUID PO SCH ×2 (08:18→14:32)
[2018-12-30] MEDS: LACTULOSE PO SCH ×2 (08:18→14:31)
[2018-12-30] MEDS: COLACE PO SCH (08:18)
[2018-12-30] MEDS: VENOFER 200 MG in NS 150 ML IV SCH (08:21)
--- NOTE | 2018-12-30 10:24 | Extremity Venous Study ---
PROCEDURE NAME: Venous U/S Bilateral Legs - 12/29/2018 COURT ADVOCATE: Jose. REQUESTING PHYSICIAN: Marychuy Rodriguez MD INDICATIONS: Edema and leg pain. FINDINGS: The deep and superficial veins of the bilateral lower extremities were visualized. In the right lower extremity there is incomplete compressibility, with visualized thrombus at the right common femoral vein, posterior tibial vein and soleal vein at the calf level. Similarly on the left, there is lack of compressibility at the left distal common femoral, deep femoral vein, superficial femoral vein and left soleal veins. There is maintained flow at each of these locations. SUMMARY: Acute deep venous thromboses, extensive, in the bilateral lower extremities with maintained flow. cc: MD Marychuy Foy MD
[2018-12-30] MEDS ORDERED: CALMOSEPTINE OINTMENT TOP PRN (10:48)
[2018-12-30] MEDS: TYLENOL PO PRN (17:18)
[2018-12-30] MEDS ORDERED: NS 1,000 ML IV SCH (18:30)
--- NOTE | 2018-12-30 18:39 | PROGRESS NOTE ---
DATE: 12/30/2018 SUBJECTIVE: The patient does not feel well today. She is not eating very much. OBJECTIVE: Vital Signs: Temperature 99.9 degrees, blood pressure 134/57, heart rate 91, respirations 18, O2 saturation 99% on room air. General: This is a chronically ill-appearing elderly female lying in bed in no acute distress. Heart: S1, S2. Normal. Regular rate and rhythm. Lungs: Clear to auscultation bilaterally. Abdomen: Positive bowel sounds. Soft, nontender, nondistended. Extremities: 1+ edema bilaterally. Neurologic: The patient is awake, but falls back asleep very quickly. LABS: White blood cell count 8.5, hemoglobin 9.6, hematocrit 29, platelets 547,000. Sodium 138, potassium 4.1, chloride 103, CO2 24, BUN 18, creatinine 0.9, glucose 106. ASSESSMENT AND PLAN: 1. Acute bilateral lower extremity deep vein thrombosis. Continue on full dose Lovenox. 2. Urinary tract infection. The urine culture is growing gram-negative rods. Continue on Rocephin. We will await the final results of the culture. 3. Right knee effusion. Aware. We will continue to monitor this closely. 4. Metabolic encephalopathy. The patient is lethargic today. We will continue to treat the underlying infection. 5. Dementia. Aware. 6. Anemia. Stable. cc: Marychuy Rodriguez MD MTDD
[2018-12-30] MEDS: ROCEPHIN 1 GM in NS 50 ML IV SCH (21:00)
[2018-12-31] MEDS: TRILEPTAL PO SCH ×3 (00:24→20:02)
[2018-12-31] MEDS: APRESOLINE PO SCH ×4 (00:24→20:11)
[2018-12-31] MEDS: SENOKOT PO SCH ×3 (00:25→20:00)
[2018-12-31] MEDS: REMERON PO SCH ×2 (00:26→20:01)
[2018-12-31] MEDS: COLACE PO SCH ×3 (00:31→20:11)
[2018-12-31] MEDS: DESYREL PO SCH ×2 (00:31→20:00)
[2018-12-31] MEDS: ARICEPT PO SCH ×2 (00:31→19:59)
[2018-12-31] MEDS: ICAR-C PO SCH ×3 (00:32→20:02)
[2018-12-31] MEDS: NORVASC PO SCH ×3 (00:32→20:09)
[2018-12-31] MEDS: MEGACE LIQUID PO SCH ×3 (00:32→20:10)
[2018-12-31] MEDS: NAMENDA PO SCH ×3 (00:32→20:01)
[2018-12-31] MEDS: LACTULOSE PO SCH ×3 (00:32→20:10)
[2018-12-31] MEDS: MIRALAX PO SCH ×3 (00:32→20:10)
[2018-12-31] MEDS: MORPHINE IV PRN ×2 (00:33→03:32)
[2018-12-31] MEDS: LOVENOX SUBQ SCH ×2 (05:46→17:23)
[2018-12-31 07:32] LABS: HEMATOCRIT 26.1 % (37.0-47.0); HEMOGLOBIN 8.3 g/dL (12.0-16.0); MCH 29.4 PG (27-31); MCHC 31.8 g/dL (33-37); MCV 92.6 FL (81-99); MPV 8.6 FL (7.4-10.4); RBC 2.82 XMIL (4.2-5.4); RDW 14.5 % (11.5-14.5); WBC 8.73 X1000 (4.8-10.8)
[2018-12-31 07:52] LABS: AGAP 13; BUN 25 mg/dL (8-22); CALCIUM 8.9 mg/dL (8.8-10.2); CHLORIDE 104 mmol/L (98-107); COSMO 286; CREATININE 0.9 mg/dL (0.5-0.9); ESTIMATED GFR > 60; GLUCOSE 97 mg/dL (70-104); POTASSIUM 4.1 mmol/L (3.5-5.1); SODIUM 141 mmol/L (136-145); TCO2 24 mmol/L (25-35)
[2018-12-31] MEDS: VENOFER 200 MG in NS 150 ML IV SCH (08:40)
[2018-12-31] MEDS: PRINIVIL PO SCH (08:41)
[2018-12-31] MEDS: CENTRUM SILVER PO SCH (08:41)
[2018-12-31] MEDS: CLINIMIX E 4.25%-5% SOLUTION 1,000 ML IV SCH (08:45)
--- NOTE | 2018-12-31 15:05 | PROGRESS NOTE ---
DATE: 12/31/2018 SUBJECTIVE: The patient is resting comfortably in bed. No acute events noted overnight. OBJECTIVE: Vital Signs: Temperature 97.5 degrees, blood pressure 127/51, heart rate 81, respirations 16, O2 saturation 98% on room air. General: This is a chronically ill-appearing elderly female, lying in bed in no acute distress. Heart: S1, S2 normal. Regular rate and rhythm. Lungs: Clear to auscultation bilaterally. Abdomen: Positive bowel sounds. Soft, nontender, nondistended. Extremities: 1+ edema in the lower extremities. Neurologic: The patient is awake and alert. LABS: White blood cell count 8.7, hemoglobin 8.3, hematocrit 26, platelets 641. Sodium 141, potassium 4.1, chloride 104, CO2 24. BUN 25, creatinine 0.9, glucose 97. ASSESSMENT AND PLAN: 1. Urinary tract infection secondary to Escherichia coli. Continue on Rocephin. 2. Acute bilateral lower extremity deep vein thromboses. Continue on full-dose Lovenox. 3. Right knee effusion. Aware. 4. Metabolic encephalopathy. We will continue to treat the urinary tract infection. The patient is awake today. 5. Dementia. Aware. 6. Anemia. Stable. 7. Disposition: We will likely plan to discharge the patient to rehabilitation the early part of this coming week. cc: Marychuy Rodriguez MD MTDD
[2018-12-31] MEDS: ROCEPHIN 1 GM in NS 50 ML IV SCH (19:56)
[2019-01-01] MEDS: CLINIMIX E 4.25%-5% SOLUTION 1,000 ML IV SCH (04:53)
[2019-01-01] MEDS: LOVENOX SUBQ SCH ×2 (06:22→18:55)
[2019-01-01 07:23] LABS: HEMATOCRIT 26.9 % (37.0-47.0); HEMOGLOBIN 8.8 g/dL (12.0-16.0); MCH 30.9 PG (27-31); MCHC 32.7 g/dL (33-37); MCV 94.4 FL (81-99); MPV 8.4 FL (7.4-10.4); RBC 2.85 XMIL (4.2-5.4); RDW 14.3 % (11.5-14.5); WBC 9.06 X1000 (4.8-10.8)
[2019-01-01 07:42] LABS: AGAP 11; BUN 23 mg/dL (8-22); CALCIUM 8.9 mg/dL (8.8-10.2); CHLORIDE 102 mmol/L (98-107); COSMO 277; CREATININE 0.7 mg/dL (0.5-0.9); ESTIMATED GFR > 60; GLUCOSE 127 mg/dL (70-104); POTASSIUM 3.9 mmol/L (3.5-5.1); SODIUM 136 mmol/L (136-145); TCO2 23 mmol/L (25-35)
[2019-01-01] MEDS ORDERED: LASIX IV ONE (07:53)
[2019-01-01] MEDS: APRESOLINE PO SCH ×4 (10:42→20:07)
[2019-01-01] MEDS: CENTRUM SILVER PO SCH (10:42)
[2019-01-01] MEDS: COLACE PO SCH ×2 (10:42→20:08)
[2019-01-01] MEDS: LACTULOSE PO SCH ×2 (10:43→20:08)
[2019-01-01] MEDS: MEGACE LIQUID PO SCH ×3 (10:43→20:07)
[2019-01-01] MEDS: NAMENDA PO SCH ×3 (10:43→20:07)
[2019-01-01] MEDS: MIRALAX PO SCH ×2 (10:43→20:08)
[2019-01-01] MEDS: ICAR-C PO SCH ×3 (10:43→20:07)
[2019-01-01] MEDS: NORVASC PO SCH ×3 (10:44→20:07)
[2019-01-01] MEDS: PRINIVIL PO SCH (10:44)
[2019-01-01] MEDS: SENOKOT PO SCH ×3 (10:44→20:07)
[2019-01-01] MEDS: TRILEPTAL PO SCH ×3 (10:44→20:07)
--- NOTE | 2019-01-01 14:52 | PROGRESS NOTE ---
DATE: 01/01/2019 SUBJECTIVE: The patient had a fever of 100.4 early this morning. She is not eating. OBJECTIVE: Vital Signs: T-max 100.4, blood pressure 136/67, heart rate 81, respirations 18, O2 saturations 99% on room air. General: This is a chronically ill-appearing elderly female lying in bed in no acute distress. Heart: S1, S2 normal. Lungs: Equal air entry bilaterally. No crackles. No rales. Abdomen: Positive bowel sounds. Soft, nontender, nondistended. Extremities: 1+ edema bilaterally. Neurologic: The patient is alert and oriented. LABORATORY: White blood cell count 9, hemoglobin 8.8, hematocrit 26, platelets 642. Sodium 136, potassium 3.9, chloride 102, CO2 23, BUN 23, creatinine 0.4, glucose 127. ProBNP 548. ASSESSMENT AND PLAN: 1. Urinary tract infection secondary to Escherichia coli. Continue on Rocephin. 2. Acute bilateral lower extremity deep venous thrombosis. Continue on full-dose Lovenox. Will likely transition to Eliquis tomorrow. 3. Right knee effusion. Aware. 4. Metabolic encephalopathy. Unchanged. 5. Severe protein calorie malnutrition. The patient is on Megace and meal supplementation, however, she is not eating well. 6. Dementia. Aware. 7. Anemia. Hemoglobin and hematocrit is a little bit lower today. Will continue to monitor closely. 8. Disposition. The patient's family should be arriving on Thursday. Will discuss with them the overall treatment plan. cc: Marychuy Rodriguez MD
[2019-01-01] MEDS: TYLENOL PO PRN (17:44)
[2019-01-01] MEDS: ARICEPT PO SCH ×2 (19:24→20:07)
[2019-01-01] MEDS: REMERON PO SCH ×2 (19:24→20:07)
[2019-01-01] MEDS: DESYREL PO SCH ×2 (19:24→20:07)
[2019-01-01] MEDS: ROCEPHIN 1 GM in NS 50 ML IV SCH (20:06)
[2019-01-02] MEDS: LOVENOX SUBQ SCH (06:50)
[2019-01-02 07:18] LABS: HEMATOCRIT 27.4 % (37.0-47.0); HEMOGLOBIN 8.9 g/dL (12.0-16.0); MCH 30.6 PG (27-31); MCHC 32.5 g/dL (33-37); MCV 94.2 FL (81-99); MPV 8.3 FL (7.4-10.4); RBC 2.91 XMIL (4.2-5.4); RDW 14.5 % (11.5-14.5); WBC 8.75 X1000 (4.8-10.8)
[2019-01-02 07:45] LABS: AGAP 14; BUN 18 mg/dL (8-22); CALCIUM 9.4 mg/dL (8.8-10.2); CHLORIDE 100 mmol/L (98-107); COSMO 276; CREATININE 0.6 mg/dL (0.5-0.9); ESTIMATED GFR > 60; GLUCOSE 107 mg/dL (70-104); POTASSIUM 4.3 mmol/L (3.5-5.1); SODIUM 137 mmol/L (136-145); TCO2 23 mmol/L (25-35)
[2019-01-02] MEDS: SENOKOT PO SCH ×2 (10:09→20:02)
[2019-01-02] MEDS: CENTRUM SILVER PO SCH (10:09)
[2019-01-02] MEDS: APRESOLINE PO SCH ×3 (10:09→20:02)
[2019-01-02] MEDS: TRILEPTAL PO SCH ×2 (10:10→20:02)
[2019-01-02] MEDS: PRINIVIL PO SCH (10:10)
[2019-01-02] MEDS: COLACE PO SCH ×2 (10:10→20:02)
[2019-01-02] MEDS: NORVASC PO SCH ×2 (10:10→20:01)
[2019-01-02] MEDS: LACTULOSE PO SCH (10:11)
[2019-01-02] MEDS: NAMENDA PO SCH ×2 (10:11→20:01)
[2019-01-02] MEDS: ICAR-C PO SCH ×2 (10:11→20:01)
[2019-01-02] MEDS: MEGACE LIQUID PO SCH (10:11)
[2019-01-02] MEDS: MIRALAX PO SCH (10:11)
--- NOTE | 2019-01-02 10:32 | Diag Imaging Result Doc PS360 ---
EXAM: FLAT/UPRIGHT ABD/1 VIEW CHEST 01/02/2019 HISTORY: constipation/dyspnea TECHNIQUE: AP upright chest and flat and upright abdomen COMMENT: There is stool in the rectosigmoid colon. The stomach and small bowel are not distended. There is no evidence organomegaly or mass. Compared to 12/29/2018 there is no significant change. The appearance of the chest has not changed significantly since the previous study of 12/29/2018. IMPRESSION: Constipation. Otherwise nonspecific abdomen. Electronically signed by Kristofer Vo 01/02/2019 10:29 AM
[2019-01-02] MEDS: MORPHINE IV PRN (10:39)
--- NOTE | 2019-01-02 16:28 | PROGRESS NOTE ---
DATE: 01/02/2019 SUBJECTIVE: The patient is resting comfortably. She complains of pain in her legs. OBJECTIVE: Vital Signs: Temperature 99.2 degrees, blood pressure 149/79, heart rate 87, respirations 18, O2 saturation is 96% on room air. General: This is a chronically ill-appearing, elderly female, lying in bed, in no acute distress. Heart: S1, S2 normal. Regular rate and rhythm. Lungs: Equal air entry bilaterally. No wheezing. No rales. No rhonchi. Abdomen: Positive bowel sounds. Soft, nontender, nondistended. Extremities: There is 1+ edema bilaterally. Neurologic: The patient is alert and oriented x3. Laboratory Data: Reviewed. ASSESSMENT AND PLAN: 1. Urinary tract infection secondary to Escherichia coli. Continue on Rocephin. 2. Acute bilateral lower extremity deep vein thrombosis. We will transition the patient to Eliquis today. 3. Metabolic encephalopathy. Unchanged. 4. Severe protein calorie malnutrition. Continue on Megace and Ensure with each meal. 5. Dementia. Aware. 6. Anemia. Stable. 7. Disposition. I spoke with the patient's niece and she would like for the patient to be a Full Code. . cc: Marychuy Rodriguez MD MTDD
[2019-01-02] MEDS: REMERON PO SCH (20:01)
[2019-01-02] MEDS: ELIQUIS PO SCH (20:01)
[2019-01-02] MEDS: DESYREL PO SCH (20:02)
[2019-01-02] MEDS: ARICEPT PO SCH (20:02)
[2019-01-02] MEDS: ROCEPHIN 1 GM in NS 50 ML IV SCH (20:02)
[2019-01-02] MEDS ORDERED: FLOMAX PO SCH (21:00)
[2019-01-02] MEDS ORDERED: DULCOLAX PR SCH (21:00)
[2019-01-03] MEDS: MEGACE LIQUID PO SCH ×2 (01:13→08:24)
[2019-01-03] MEDS: LACTULOSE PO SCH ×2 (01:13→08:23)
[2019-01-03] MEDS: MIRALAX PO SCH ×2 (01:13→08:24)
[2019-01-03 07:27] LABS: HEMATOCRIT 27.9 % (37.0-47.0); HEMOGLOBIN 8.8 g/dL (12.0-16.0); MCH 29.5 PG (27-31); MCHC 31.5 g/dL (33-37); MCV 93.6 FL (81-99); MPV 7.9 FL (7.4-10.4); RBC 2.98 XMIL (4.2-5.4); RDW 14.8 % (11.5-14.5); WBC 8.53 X1000 (4.8-10.8)
[2019-01-03 07:37] LABS: AGAP 11; BUN 21 mg/dL (8-22); CALCIUM 9.2 mg/dL (8.8-10.2); CHLORIDE 102 mmol/L (98-107); COSMO 281; CREATININE 0.8 mg/dL (0.5-0.9); ESTIMATED GFR > 60; GLUCOSE 102 mg/dL (70-104); POTASSIUM 4.5 mmol/L (3.5-5.1); SODIUM 139 mmol/L (136-145); TCO2 26 mmol/L (25-35)
[2019-01-03] MEDS: SENOKOT PO SCH (08:22)
[2019-01-03] MEDS: NAMENDA PO SCH (08:22)
[2019-01-03] MEDS: COLACE PO SCH (08:23)
[2019-01-03] MEDS: NORVASC PO SCH (08:23)
[2019-01-03] MEDS: ICAR-C PO SCH (08:23)
[2019-01-03] MEDS: CENTRUM SILVER PO SCH (08:23)
[2019-01-03] MEDS: ELIQUIS PO SCH (08:23)
[2019-01-03] MEDS: PRINIVIL PO SCH (08:23)
[2019-01-03] MEDS: APRESOLINE PO SCH (08:23)
[2019-01-03] MEDS: TRILEPTAL PO SCH (08:24)
[2019-01-03] MEDS: MORPHINE IV PRN (08:24)
--- NOTE | 2019-01-03 11:14 | DISCHARGE SUMMARY ---
ADMISSION DATE: 12/19/2018 DISCHARGE DATE: 01/03/2019 FINAL DISCHARGE DIAGNOSES: 1. Urinary tract infection secondary to Escherichia coli. 2. Acute bilateral lower extremity deep venous thromboses. 3. Metabolic encephalopathy. 4. Dementia. 5. Severe protein calorie malnutrition. 6. Anemia. 7. Chronic constipation. HOSPITAL COURSE: Ms. Goode is an 83-year-old female with a history of dementia, chronic constipation, anemia, and hypertension who was brought to the ER with the chief complaint of left upper extremity weakness. On admission, a head CT was done that revealed chronic changes. The patient was admitted to the hospitalist service. Also, a carotid Doppler study was done that revealed no significant plaque disease. This was then followed by a brain MRI that revealed no acute process, but there was the possibility of possible normal-pressure hydrocephalus. The patient was seen by neurology as well. The patient started to complain of pain in her legs and so bilateral venous Dopplers were performed which revealed bilateral DVTs that were noted to be extensive. The patient was started on full-dose Lovenox, which was later transitioned to Eliquis. The patient was also noted to have a urinary tract infection and was started on IV Rocephin. Ultimately, the urine culture grew out Escherichia coli. The patient was also noted to be anemic. Iron studies were done that revealed iron deficiency. As a result, the patient was started on iron supplementation. Physical therapy as well as occupational therapy continued to work with the patient. director client services was consulted for inpatient rehab placement. On 01/03/2019, it was noted that the patient was stable for discharge to [facility] for inpatient rehab. DISCHARGE MEDICATIONS: 1. Hydralazine 25 mg oral 3 times a day. 2. Multivitamin 1 tablet oral daily. 3. Megace 40 mg p.o. twice a day. 4. MiraLAX 17 g oral twice a day. 5. Seroquel 25 mg oral daily. 6. Colace 100 mg oral twice a day. 7. Norvasc 5 mg oral twice a day. 8. Flomax 0.4 mg oral at bedtime. 9. Eliquis 2.5 mg oral twice a day. 10. Icar C one tablet oral twice a day. 11. Keflex 500 mg oral twice a day x5 days. 12. Dulcolax 10 mg per rectum at bedtime. 13. Probiotic 1 tablet oral daily. 14. Lisinopril 20 mg p.o. daily. 15. Namenda 5 mg oral twice a day. 16. Vitamin D3 with 2000 units oral daily. 17. Remeron 7.5 mg oral at bedtime. 18. Trazodone 50 mg oral at bedtime. 19. Oxcarbazepine 300 mg oral twice a day. DISCHARGE DIET: Low-sodium, low-cholesterol diet. ACTIVITY: As tolerated. FOLLOWUP INSTRUCTIONS: The patient will need to follow up with her primary care physician, Dr. Casanova, upon discharge from inpatient rehab. cc: MD Esperanza Toure MD
[2019-01-03 12:17] VITALS: BP 138/54
== END 2019-01-03 16:18 | DRG 947 ==
LOC: SUPCPDRO → ED 20:15 → 3N 12-19 01:01 → SUATTDRO 12-19 01:01 → 3N 12-19 01:17
PROVIDERS: ATTEND Internal Medicine
CPT/HCPCS: 51701; 70450; 70553; 71010; 71020; 71045; 71046; 73110; 73562; 74019; 74020; 74022; 80048; 80053; 81001; 82040; 82607; 82728; 82746; 83540; 83550; 83880; 84484; 85025; 85027; 85610; 85730; 87040; 87077; 87088; 87186; 93005; 93880; 93970; 96365; 96366; 97110; 97162; 97165; 97530; 97535; 99285; A9270; A9579; J0360; J0696; J1650; J1756; J1940; J2270; J3411; J3475; J7030; P9612; S0179